=== PATIENT | male | born 1970 | race Caucasian/White ===

== ENCOUNTER 2017-09-14 16:49 | Emergency (ER) | payer BC ==
[~2017-09-14] VITALS: Ht 180.3 cm; Wt 147.9 kg
[~2017-09-14 16:49] MED LIST: ANDROGEL75 GM TD; HYDROCHLOROTHIA25 MG PO; LANSOPRAZOLE30 MG PO; LISINOPRIL40 MG PO; LOVASTATIN40 MG PO; PERCOCET 5/31 TABLET PO
[2017-09-14 17:51] LABS: HEMATOCRIT 40.8 % (38.0-50.0); HEMOGLOBIN 13.6 G/DL (12.5-16.6); MCH 28.6 PG (29.0-34.0); MCHC 33.3 G/DL (30.0-36.0); MCV 85.9 FL (86-99); PLATELET COUNT 229 K/uL (156-360); RBC DIS.WIDTH-CV 13.5 % (11.8-14.6); RBC DIS.WIDTH-SD 42.2 % (39-53); RED BLOOD COUNT 4.75 M/uL (4.00-5.50); WHITE BLOOD COUNT 11.7 K/uL (4.1-10.2)
[2017-09-14 18:04] LABS: CHLORIDE 102 mEq/L (99-109); POTASSIUM 4.5 mEq/L (3.7-5.4); SODIUM 139 mEq/L (136-147)
[2017-09-14 18:06] LABS: GLUCOSE 132 mg/dL (70-99)
[2017-09-14 18:09] LABS: CREATININE 0.8 mg/dL (0.6-1.3); GFR ESTIMATE (CALCULATED) > 59 mL/min/ (58.99-99999)
[2017-09-14 18:10] LABS: UREA NITROGEN (BUN) 13 mg/dL (9-23)
[2017-09-14 18:16] LABS: TROP-I INTERPRETATION NEGATIVE; TROPONIN-I < 0.01 ng/mL (0.0-0.30)
[2017-09-14 19:05] VITALS: BP 150/95
== END 2017-09-14 19:07 | disposition home or self-care (01) ==
LOC: EME 16:49
PROVIDERS: Emergency Medicine
DX: R05 Cough (principal); J98.11 Atelectasis; R91.8 Other nonspecific abnormal finding of lung field; R73.03 Prediabetes; K21.9 Gastro-esophageal reflux disease without esophagitis; I10 Essential (primary) hypertension; E78.5 Hyperlipidemia, unspecified; F17.200 Nicotine dependence, unspecified, uncomplicated; Z95.9 Presence of cardiac and vascular implant and graft, unspecified
CPT/HCPCS: 71046; 80048; 84484; 85027; 93005; 99281; 99284